=== PATIENT | female | born 1945 | race Caucasian/White ===

== ENCOUNTER → 2023-08-16 13:23 | Outpatient (REF) | payer MEDICARE, OTHER, SELFPAY | LOC: WDC 13:23 | PROVIDERS: ATTENDING PHYSICIAN Obstetrics & Gynecology Gynecology; FAMILY PHYSICIAN Physician Assistant Medical | DX: Z12.31 Encounter for screening mammogram for malignant neoplasm of breast (principal) | CPT/HCPCS: 77063; 77067 ==

== ENCOUNTER → 2023-09-20 09:42 | Outpatient (REF) | payer MEDICARE, OTHER, SELFPAY | LOC: WDC 09:42 | PROVIDERS: ATTENDING PHYSICIAN Obstetrics & Gynecology Gynecology; FAMILY PHYSICIAN Physician Assistant Medical | DX: R92.2 Inconclusive mammogram (principal) | CPT/HCPCS: 76641 ==

== ENCOUNTER → 2023-09-29 15:23 | Outpatient (REF) | payer MEDICARE, OTHER, SELFPAY ==
[2023-09-29 16:53] LABS: % Basophils 0.5 % (0-2); % Immature Granulocytes 0.3 % (0-0.5); % Lymphocytes 24.3 % (20.5-51.1); % Monocytes 6.4 % (1.7-9.3); % Neutrophils 68.5 % (42.2-75.2); Absolute Lymphocytes 1.4 10^3/uL (1.2-3.4); Absolute Monocytes 0.4 10^3/uL (0.1-0.6); Absolute Neutrophils 3.9 10^3/uL (1.4-6.5); Hematocrit 36.5 % (37.0-47.0); Hemoglobin 12.2 g/dL (12.0-16.0); Mean Corp Hgb Conc. 33.4 g/dL (33.0-37.0); Mean Corpuscular Hgb 29.5 pg (27.0-31.0); Mean Corpuscular Volume 88.4 fL (81.0-99.0); Mean Platelet Volume 9.8 fL (7.4-10.4); Nucleated Red Blood Cells % 0 %; Platelet Count 235 10^3/uL (130-400); Red Blood Cell Count 4.13 10^6/uL (4.20-5.40); Red Cell Dist. Width 13.6 % (11.5-14.5); White Blood Cell Count 5.8 10^3/uL (4.8-10.8)
[2023-09-29 17:09] LABS: ALT (SGPT) 18 U/L (0-35); AST (SGOT) 30 U/L (14-36); Albumin 4.5 g/dl (3.5-5.0); Alkaline Phosphatase 67 U/L (38-126); Blood Urea Nitrogen 20 mg/dl (7-17); Calcium 9.5 mg/dl (8.4-10.2); Carbon Dioxide 27 mmol/L (22-30); Chloride 105 mmol/L (98-107); Glucose 98 mg/dl (70-99); HDL Cholesterol 74 mg/dl; LDL Cholesterol, Calculated 131 mg/dl; Potassium 4.2 mmol/L (3.5-5.1); Sodium 140 mmol/L (135-145); Total Cholesterol 218 mg/dl (50-199); Total Protein 7.1 g/dl (6.3-8.2); Triglyceride 68 mg/dl (10-149); Very Low Density Lipoprotein 13 mg/dl (0-30); eGFR > 60.00
[2023-09-29 17:37] LABS: TSH Reflex To Free T4 1.04 uIU/ml (0.47-4.68)
== END ==
LOC: REG 15:23
PROVIDERS: ATTENDING PHYSICIAN Internal Medicine
DX: E78.2 Mixed hyperlipidemia (principal); I10 Essential (primary) hypertension
CPT/HCPCS: 36415; 80053; 80061; 84443; 85025

== ENCOUNTER 2024-04-07 16:22 | Emergency (ER) | payer MEDICARE, OTHER, SELFPAY ==
[2024-04-07 16:38] VITALS: BP 185/93
[2024-04-07 17:11] LABS: % Basophils 0.4 % (0-2); % Immature Granulocytes 0.3 % (0-0.5); % Lymphocytes 14.7 % (20.5-51.1); % Monocytes 7.1 % (1.7-9.3); % Neutrophils 77.5 % (42.2-75.2); Absolute Monocytes 0.5 10^3/uL (0.1-0.6); Absolute Neutrophils 5.2 10^3/uL (1.4-6.5); Hematocrit 35.7 % (37.0-47.0); Hemoglobin 11.9 g/dL (12.0-16.0); Mean Corp Hgb Conc. 33.3 g/dL (33.0-37.0); Mean Corpuscular Hgb 29.5 pg (27.0-31.0); Mean Corpuscular Volume 88.6 fL (81.0-99.0); Mean Platelet Volume 9.5 fL (7.4-10.4); Nucleated Red Blood Cells % 0 %; Platelet Count 250 10^3/uL (130-400); Red Blood Cell Count 4.03 10^6/uL (4.20-5.40); White Blood Cell Count 6.7 10^3/uL (4.8-10.8)
[2024-04-07 17:18] LABS: ALT (SGPT) 35 U/L (0-35); AST (SGOT) 51 U/L (14-36); Albumin 4.5 g/dl (3.5-5.0); Alkaline Phosphatase 58 U/L (38-126); Blood Urea Nitrogen 26 mg/dl (7-17); Calcium 9.4 mg/dl (8.4-10.2); Carbon Dioxide 31 mmol/L (22-30); Chloride 105 mmol/L (98-107); Glucose 115 mg/dl (70-99); Potassium 3.8 mmol/L (3.5-5.1); Sodium 142 mmol/L (135-145); Total Bilirubin 1.2 mg/dl (0.2-1.3); eGFR > 60.00
[2024-04-07 21:07] VITALS: BP 192/82
[2024-04-07 21:10] VITALS: BMI 25.5
[2024-04-07 21:12] VITALS: BP 195/92
[2024-04-07 21:30] LABS: Urine Albumin Negative (Neg - Trace); Urine Bilirubin Negative (Negative); Urine Character Clear (Clear); Urine Color Yellow; Urine Glucose Negative (Negative); Urine Ketone Negative (Negative); Urine Leukocyte Negative (Negative); Urine Nitrite Negative (Negative); Urine Occult Blood Negative (Negative); Urine Urobilinogen Negative (Neg - 1+)
[2024-04-07 23:00] VITALS: BP 176/83
--- NOTE | 2024-04-07 23:35 | ED.GENMED ---
History of Present Illness
General
Chief Complaint: Change in Mental Status
Time Seen by Provider: 04/07/24 22:43
History of Present Illness
History of Present Illness:
78-year-old female with history of anxiety presenting to the emergency department for concern of depression and psychosis type symptoms. Patient arrives with brother who reports for the past several months patient has been struggling, and appears
to have worsened in the past 2 months. Patient herself expresses delusional behavior, hallucinations. She continues to perseverate on feeling like her house is not her home. Brother report last night around midnight, she called him and left a
voicemail with tangential speech. Patient denies any SI or HI. She is aware of her current feelings. She denies any associated medical complaint such as chest pain, difficulty breathing, abdominal pain, weakness, numbness or tingling to her her
extremities. Denies recent fever or illness, or additional acute medical complaints
Phy Exam
Physical Exam
Physical Exam:
General: Well-appearing, no clinical signs of dehydration, nontoxic and in no acute distress
HEENT: protecting airway
Neck: appears supple
CV: Normal heart rate, regular rhythm
Resp: No accessory muscle use, no increased work of breathing, lungs clear to auscultation bilaterally
Abd: No distention
Extremities: No deformities, no swelling
Neuro: alert, no focal neurologic deficit
: deferred
Rectal: deferred
Psych: Normal affect
Skin: Intact
Course
Orders/Labs/Results
Orders:
Orders
04/07/24 16:57
Complete Blood Count/With Diff Urgent
Comprehensive Metabolic Panel Urgent
04/07/24 18:49
CT Head W/o Iv Contrast Urgent
Comment:
Reason For Exam: AMS
04/07/24 21:10
Urinalysis Reflex To Culture Urgent
Date Specimen was Collected: 04/07/24
Time Specimen was Collected: 16:43
04/07/24 22:40
Crisis Consult Urgent
Reason for Consult: depression, anxiety
Abnormal Lab Results
04/07/24
16:57
RBC 4.03 L 10^6/uL
(4.20-5.40)
Hgb 11.9 L g/dL
(12.0-16.0)
Hct 35.7 L %
(37.0-47.0)
Absolute Lymphs (auto) 1.0 L 10^3/uL
(1.2-3.4)
Neutrophils % 77.5 H %
(42.2-75.2)
Lymphocytes % 14.7 L %
(20.5-51.1)
Carbon Dioxide 31 H mmol/L
(22-30)
BUN 26 H mg/dl
(7-17)
Glucose 115 H mg/dl
(70-99)
AST 51 H U/L
(14-36)
04/07/24 16:57
04/07/24 16:57
Vital Signs
Initial and Last Documented VS:
Initial Vital Signs
Temp Pulse Resp BP Pulse Ox
97.6 F 93 18 185/93 99
04/07/24 16:38 04/07/24 16:38 04/07/24 16:38 04/07/24 16:38 04/07/24 16:38
Last Documented Vital Signs
Temp Pulse Resp BP Pulse Ox
97.6 F 74 20 99/86 98
04/07/24 16:38 04/08/24 00:00 04/08/24 00:00 04/08/24 00:00 04/08/24 00:00
MDM/Problems Addressed
MDM/Problems Addressed:
78-year-old female with history of anxiety presenting for concern of depression and acute psychosis. Vital signs on arrival are significant for high blood pressure.
On exam, patient is resting comfortably, no acute distress or discomfort. Denies any present acute medical complaints. She is awake, alert, oriented, did not appear to be acutely confused with no focal neurologic deficits. Patient had screening
laboratory analysis and CT brain imaging prior to my assessment, normal urinalysis, laboratory work, CT brain. Patient is very hypertensive on arrival, noted underlying history of high blood pressure, however does not take medications because she
does not like taking medications. Do not suspect that hypertension is contributing to symptoms. Suspect underlying severe depression. Patient denies any present SI or HI, does not appear to be present threat to herself or others. Will have
patient evaluated by crisis
23:50 -patient seen by crisis, feel that patient's symptoms are rooted in severe anxiety, sparked by increasing memory loss that has been ongoing for several years. In agreement with assessment. Patient has very strong support, recommending
outpatient psychiatry and therapy follow-up. Regarding her blood pressure, do feel patient warrants medical therapy. Advised close outpatient PCP follow-up for blood pressure recheck and medication management. Otherwise stable for discharge.
Return precautions discussed and patient verbalized understanding
*Critical Care Note
Total Time (30-74mins, 75-104mins- exclusive of procedures): Not Applicable
ED Attending Note
-
Portions of this chart may have been created with voice recognition software.� Occasional wrong word or��sound alike� substitutions may have occurred due to the inherent limitations of voice recognition software.
Discharge Plan
Departure
Patient Disposition: Home (Routine Discharge)
Date of Disposition: 04/08/24
Time of Disposition: 00:25
Patient with high blood pressure during this ER visit?: Yes
Condition: Good
Discharge Problem:
Anxiety, High blood pressure
Instructions: Generalized anxiety disorder, How to Help Your Memory, Hypertention
Referrals:
UNKNOWN - PT DOES,NOT KNOW [Family Provider] -
Activity Restrictions/Additional Instructions:
You were seen in the emergency department for anxiety
You were found to have normal laboratory work and CT imaging of your brain. You were seen by crisis management, and were provided resources for outpatient therapy and psychiatry.
Please follow-up closely with your primary care physician for suspected underlying diagnosis of high blood pressure
Return to the emergency department for any worsening of your symptoms including increased anxiety/panic or thoughts of wanting to hurt yourself or others, or any development of chest pain, difficulty breathing, abdominal pain with persistent
vomiting and inability to tolerate food or liquid by mouth (concern for dehydration), weakness, headache or confusion, fever greater than 100.4, or any additional symptoms that are concerning to you.
Thank you for choosing [facility].
Interventions
Interventions:
*Risk Screen - Suicide Last Done: 04/07/24 16:23
*General Assessment Last Done: 04/07/24 21:11
*Neglect/Abuse Screening Last Done: 04/07/24 21:11
ED- Fall Risk Assessment Last Done: 04/07/24 21:11
*ED COVID-19 Vaccine History Last Done: 04/07/24 21:11
*Nursing Disposition Last Done: 04/08/24 00:32
ED- Cardiac Assessment Last Done: 04/07/24 21:18
ED- Neurological Assessment Last Done: 04/07/24 21:12
Discharge Date and Time
Discharge Date/Time: 04/08/24 00:30
Print Language: THAI
[2024-04-08] VITALS: BP 99/86
== END 2024-04-08 00:30 | disposition home or self-care (01) ==
LOC: EMR 16:22
PROVIDERS: Emergency Medicine; EMERGENCY PHYSICIAN Student in an Organized Health Care Education/Training Program
DX: F41.9 Anxiety disorder, unspecified (principal); I10 Essential (primary) hypertension; F32.A Depression, unspecified
CPT/HCPCS: 99284; 70450; 80053; 81003; 85025

== ENCOUNTER 2024-04-14 01:59 | Observation (INO) | payer MEDICARE, OTHER, SELFPAY ==
[2024-04-13] VITALS (7 sets, daily range): BP systolic 147–192; BP diastolic 63–99; BMI 25.3
[2024-04-13 15:02] LABS: % Basophils 0.4 % (0-2); % Immature Granulocytes 0.2 % (0-0.5); % Lymphocytes 13.8 % (20.5-51.1); % Monocytes 7.5 % (1.7-9.3); % Neutrophils 78.1 % (42.2-75.2); Absolute Lymphocytes 0.8 10^3/uL (1.2-3.4); Absolute Monocytes 0.4 10^3/uL (0.1-0.6); Absolute Neutrophils 4.5 10^3/uL (1.4-6.5); Hematocrit 35.3 % (37.0-47.0); Mean Corpuscular Hgb 29.9 pg (27.0-31.0); Mean Corpuscular Volume 87.8 fL (81.0-99.0); Mean Platelet Volume 9.8 fL (7.4-10.4); Nucleated Red Blood Cells % 0 %; Platelet Count 240 10^3/uL (130-400); Red Blood Cell Count 4.02 10^6/uL (4.20-5.40); Red Cell Dist. Width 13.8 % (11.5-14.5); White Blood Cell Count 5.7 10^3/uL (4.8-10.8)
[2024-04-13 15:23] LABS: ALT (SGPT) 33 U/L (0-35); AST (SGOT) 39 U/L (14-36); Albumin 4.4 g/dl (3.5-5.0); Alkaline Phosphatase 68 U/L (38-126); Blood Urea Nitrogen 26 mg/dl (7-17); Calcium 9.3 mg/dl (8.4-10.2); Carbon Dioxide 31 mmol/L (22-30); Chloride 103 mmol/L (98-107); Glucose 116 mg/dl (70-99); Sodium 140 mmol/L (135-145); Total Bilirubin 0.8 mg/dl (0.2-1.3); Total Protein 6.9 g/dl (6.3-8.2); eGFR > 60.00
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
[2024-04-13] MEDS: NSS 1000 IV (19:17)
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
[2024-04-13 22:16] LABS: Urine Albumin Negative (Neg - Trace); Urine Bilirubin Negative (Negative); Urine Character Clear (Clear); Urine Color Yellow; Urine Glucose Negative (Negative); Urine Ketone Negative (Negative); Urine Leukocyte Trace (Negative); Urine Nitrite Negative (Negative); Urine Occult Blood Negative (Negative); Urine Urobilinogen 1+ (Neg - 1+)
[2024-04-13 22:23] LABS: Urine Bacteria Few (Negative); Urine Red Blood Cell 0-2 /HPF (0-2)
--- NOTE | 2024-04-13 22:45 | W.PN.UPDATE ---
Update Note
Progress Note Update
Patient seen in conjunction with LEONOR. I agree with the findings on history and physical. I concur with the assessment and plan unless stated otherwise.
This is a 78-year-old female with no known signal past medical history. She does endorse history of hypertension for which she has stopped taking any medications. She presents to the emergency department for recurrent episodes of hallucination.
She states this has been going on for several weeks. She reports visual hallucinations involving people. She denies any auditory hallucinations. She denies any prior history of hallucinations delusions or psychiatric disorders. She denies
current depression but reports that she has been stressed by the hallucinations. She denies any sleeping disorders. She denies urinary symptoms. She denies any weakness since, numbness tingling, facial asymmetry.
Brought into the emergency department as she was having increasing confusion per family members.
In the emergency department she was hypertensive with a blood pressure of 180/70 and pulse of 79. She was afebrile. Oxygen saturation was normal on room air. CBC was complete within normal limits. Electrolytes were also completely within normal
limits.
CT of the head shows no acute findings.
A&P
Hallucinations w/o overt psychosis. Suspect in setting of some memory loss and confusion this is due to dementia.
- admit to med/surg
- subacute ementia w/u with u/a, b12, tsh and rpr
- psych consultation
- pt eval
- case management
HTN
- SBP 185, check orthostatic in am, start norvasc 2.5 if not orthostatic
DVT PPX - lovenox sq
Code status - full code
[2024-04-14] VITALS (9 sets, daily range): BP systolic 99–168; BP diastolic 50–104
[2024-04-14 05:50] LABS: Hematocrit 29.8 % (37.0-47.0); Hemoglobin 9.9 g/dL (12.0-16.0); Mean Corp Hgb Conc. 33.2 g/dL (33.0-37.0); Mean Corpuscular Hgb 30.4 pg (27.0-31.0); Mean Corpuscular Volume 91.4 fL (81.0-99.0); Mean Platelet Volume 10.2 fL (7.4-10.4); Platelet Count 190 10^3/uL (130-400); Red Blood Cell Count 3.26 10^6/uL (4.20-5.40); Red Cell Dist. Width 13.7 % (11.5-14.5); White Blood Cell Count 4.5 10^3/uL (4.8-10.8)
[2024-04-14 06:22] LABS: TSH 0.91 uIU/ml (0.47-4.68)
[2024-04-14 06:41] LABS: Vitamin B12 203 pg/ml (239-931)
[2024-04-14 06:43] LABS: Blood Urea Nitrogen 20 mg/dl (7-17); Calcium 8.5 mg/dl (8.4-10.2); Carbon Dioxide 26 mmol/L (22-30); Chloride 108 mmol/L (98-107); Estimated Creatinine Clearance 65 ml/min; Glucose 101 mg/dl (70-99); Potassium 3.7 mmol/L (3.5-5.1); Sodium 137 mmol/L (135-145); eGFR > 60.00
[2024-04-14 11:18] LABS: Syphilis/T. pallidum Ab Reflex Negative (Negative)
--- NOTE | 2024-04-14 12:11 | CON.MD ---
Addendum entered and electronically signed by Delta Melvin MD 04/14/24 13:10:
patient should also see ophthalmology for followup re macular degeneration. 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
Original Note:
Consultation - Medical
-
patient seen chart reviewed. the patient is an 78 year old woman . her brother and sister in law were present at bedside. the patient has come to er twice in the past week. she started to experience visual hallucinations about a month ago. she
sees people staring at her. they do not speak but in the wake on a few of these occasions she became very paranoid and thought they had stolen money from her. her sister in law whom she called was able to reassure her that this was not the case.
this patient does NOT present the typical px of an early dementia who is developing paranoia. she is very intelligent articulate and presents very well. she has no psych hx. she was reflective when i asked about psych hx and said she believes to
some extent she may have been depressed and anxious at times but was in a state of denial and reassured herself she was strong enough to deal with whatever came her way and until now she has. she does feel somewhat depressed at this time in that
her energy level is down but she can still enjoy some activities . she wants to sleep more. her appetite is good. she does not have suicidal thoughts. her family brings up that once she called them in the middle of the night when she suddenly
awakened very upset that she knew she was in her house but then felt it was not her house but rather a replica of her house. they were able to reassure her.
past psych hx patient has never been hospitalized or treated psychiatrically
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
family hx brother w hx serious depression has tried many meds and also including tms and ketamine. father may have suicided. patient had a brother who was seriously ill psychiatrically but at 14 from cancer
medical hx patient takes no medications currently. she does have hx hld and htn as well as tinnitus. she is anemic hgb9.9 normocytic bun sl high cat scan w some atrophy white matter ischemic disease bp 99/55 b12 is low tsh nl patient
believes she was told in the past that she has 'some macular degeneration' about a year ago. did not followup . she does not have a pcp.
social hx resides alone. 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 enjoys making
jewelry. had a chaotic childhood both parents etohic and brother raised hell. he very young
mse alert ox3 cooperative and very pleasant/articulate. speech and thought process normal. mood is i would say neutral although some anxiety about the hallucinations apparent. affect normal. no si above aver intelligence insight judgment good
dx visual hallucinations etiology unclear r/o incipient dementia r/o neurological issue
recommendations patient is clearly unnerved by visual hallucinations which can be related to sleep onset/offset which of course would be normal but do not occur solely at that time. there are many causes of visual hallucinations including
neurological issues (eg small strokes, seizure auras etc.) secondary to visual impairments, incipient dementia. This patient is NOT grossly cognitively impaired. she does not appear to me to be psychotic at present. moments of paranoia which it
seems are easily defused by family reassurance may be from the fright engendered by seeing things. she does have appt with a neuro psych dr maggie eugene on the May. i would suggest neuro consult . would defer to neuro re mri which family
is requesting. check folate. noted b12 is low and should be repleted. she is also anemic which should be addressesd as a hgb of 9.9 could be something. she also has relatively low wbc w low lymphocytes. i would be reluctant to rx with
antipsychotics which do not do much for visual hallucinations and could cause significant side effects. would reassess after medical and neuro workup. do not feel she needs psych meds at this juncture. have notified dr johansen (neuro) re consult.
--- NOTE | 2024-04-14 12:22 | CM ---
CM reviewed medical records. CM discussed case with CM director. CM will await psychiatry's recommendation.
--- NOTE | 2024-04-14 13:21 | CON.NEURO ---
Neuro Assessment/Plan
Assessment
head CT: mild microvascular changes
Visual hallucinations due to Parkinson's disease
her parkinsonism is relatively mild
Plan
start Seroquel 12.5 mg daily
no need for MRI
ok to go home
outpatient neurology follow up, consider Nuplazid 34 mg daily
Consultation
Order
Date of Consultation: 04/14/24
Requesting Provider: Leisa Melvin
Reason for Consult: Visual hallucinations
Subjective/Objective
Subjective Data
Date of Service: April 14, 2024
78 year old woman presents with 1 month of visual hallucinations. she sees a woman sitting on her bed holding a purse staring at her through the handles. the hallucination does not speak, and she finds it scary. Occasional paranoid delusions that
someone stole money from her.
She denies punching/kicking during sleep. +fine tremors, walking slower, softer voice in recent years
Objective Data
Vital Signs
Temp Pulse Resp BP Pulse Ox
36.9 C 70 16 168/75 98
04/14/24 11:55 04/14/24 09:00 04/14/24 09:00 04/14/24 09:00 04/14/24 04:00
Lab Results
04/14/24 04:53
04/14/24 04:53
Sodium 137 mmol/L (135-145) 04/14/24 04:53
Potassium 3.7 mmol/L (3.5-5.1) 04/14/24 04:53
BUN 20 mg/dl (7-17) H 04/14/24 04:53
Glucose 101 mg/dl (70-99) H 04/14/24 04:53
Calcium 8.5 mg/dl (8.4-10.2) 04/14/24 04:53
Vitamin B12 203 pg/ml (239-931) L 04/14/24 04:53
Patient Allergies
No Allergy Information Available Allergy (Unverified 04/07/24 16:40)
Physical Exam
-
AAO x3, speech soft, clear, language intact
VFF, EOMI, face symmetric
full strength b/l UE/LE,
+bradycardia, +cogwheel rigidity with contralateral activation
sensation intact to touch/pin
DTR 1+ symmetrical
Medications
-
Active Medications
Generic Name Dose Route Start Last Admin
Trade Name Freq PRN Reason Stop Dose Admin
Enoxaparin Sodium 40 mg 04/14/24 18:00
Enoxaparin Sodium 40 Mg/0.4 Ml Syringe SC 05/12/24 17:59
QPM MUNDO
Sodium Chloride 0 flush 04/13/24 22:00
Sodium Chloride 0.9% (Flush) Syringe IV 05/11/24 21:59
PER PROTOCOL MUNDO
Home Medications
�Medication �Instructions �Recorded
No Meds [No Current Medications] 04/13/24
[2024-04-14] MEDS: CYANOCOBALAMIN 1000 MCG IM (14:28)
--- NOTE | 2024-04-14 14:54 | W.PN.HOSP.TC ---
Today's Communication/Plan
-
Discharge home today
Assessment / Plan
Assessment / Plan
Impression:
his is a 78-year-old female with no known past psych history who presents to the emergency department for recurrent episodes of hallucination. She states this has been going on for several weeks. She reports visual hallucinations involving people.
She denies any auditory hallucinations. She denies any prior history of hallucinations delusions or psychiatric disorders. Vitamin B12 came back low, was given vitamin B 12 shot and will be discharged on oral supplement.
Seen by both psych and neurology, no further imaging needed.
Recommendation from neurology to start Seroquel 12.5 mg at night
Assessment/plan
hallucinations
Head CT: No acute intracranial abnormality noted.
No acute intracranial hemorrhage.
No evidence of acute large vascular territory transcortical infarct at this time.
- Admit patient to med/surg for observation
- Psych Consult
- Dementia workup
- Case management
- PT Eval
04/14
Vitamin B12 came back low, was given vitamin B 12 shot and will be discharged on oral supplement.
Seen by both psych and neurology, no further imaging needed.
Recommendation from neurology to start Seroquel 12.5 mg at night
#anxiety
#hyperlipidemia
#hypertension
#tinnitus
Code Status: Full Code
DVT Prophylaxis: Lovenox Sq
Anticipated Discharge: Today
Subjective/Interval History
-
Date of Service: April 14, 2024
Patient seen and examined at bedside, then evaluated by both neurology and psychiatrist.
Plan to discharge home today.
Objective Data
-
Labs:
Laboratory Results
04/14/24
04:53
WBC 4.5 L
Hgb 9.9 L
Hct 29.8 L
Plt Count 190 D
Sodium 137
Potassium 3.7
Chloride 108 H
Carbon Dioxide 26
BUN 20 H
Creatinine 0.6
Glucose 101 H
Calcium 8.5
Vital Signs:
Vital Signs
Temp Pulse Resp BP Pulse Ox
98.2 F 92 16 147/104 97
04/14/24 14:41 04/14/24 14:41 04/14/24 14:41 04/14/24 14:41 04/14/24 14:41
I&O
04/13/24 04/14/24 04/15/24
06:59 06:59 06:59
Intake Total 1060 / 1060
Balance 1060 / 1060
Physical Exam
-
General: Well Developed, Well Nourished, No Apparent Distress and Comfortable
HEENT: Normocephalic, Atraumatic, Moist Mucous Membranes, No Ptosis, PERRLA and Nose Appears Normal
Respiratory: Clear to Auscultation and Non Labored Respirations
Cardiac: Regular Rhythm and S1/S2
Breast: Deferred by me
GI: Soft, Nontender, Nondistended and Normal Bowel Sounds
Genito-urinary: No Costovertebral Tender
Musculoskeletal: No Clubbing, No Cyanosis and No Edema
Skin: Warm
Neuro: Awake, Alert, Oriented, AO x 3 and No Motor Deficits
Psych: Confused and Anxious
--- NOTE | 2024-04-14 15:04 | W.DCSUMMARY ---
Discharge Summary
Discharge Data
Date of Admission: 04/14/24
Date of Discharge: 04/14/24
-
Pending Results: No
Hospital Course
Impression:
his is a 78-year-old female with no known past psych history who presents to the emergency department for recurrent episodes of hallucination. She states this has been going on for several weeks. She reports visual hallucinations involving people.
She denies any auditory hallucinations. She denies any prior history of hallucinations delusions or psychiatric disorders. Vitamin B12 came back low, was given vitamin B 12 shot and will be discharged on oral supplement.
Seen by both psych and neurology, no further imaging needed.
Recommendation from neurology to start Seroquel 12.5 mg at night
Assessment/plan
hallucinations
Head CT: No acute intracranial abnormality noted.
No acute intracranial hemorrhage.
No evidence of acute large vascular territory transcortical infarct at this time.
- Admit patient to med/surg for observation
- Psych Consult
- Dementia workup
- Case management
- PT Eval
04/14
Vitamin B12 came back low, was given vitamin B 12 shot and will be discharged on oral supplement.
Seen by both psych and neurology, no further imaging needed.
Recommendation from neurology to start Seroquel 12.5 mg at night
#anxiety
#hyperlipidemia
#hypertension
#tinnitus
Code Status: Full Code
DVT Prophylaxis: Lovenox Sq
Anticipated Discharge: Today
Discharge Plan
-
Patient Disposition: Home (Routine Discharge)
Discharge Diagnosis/Procedures: Hallucinations
Diet: No restrictions
Activity: No restrictions
Driving Restrictions: As prior to admission
Referrals:
[facility] PS[facility] [Specified Professional Personl] - in two to three weeks
NONE,* [Family Provider] -
Prescriptions:
New
quetiapine 25 mg Tablet
12.5 mg PO HS Qty: 30 0RF
cyanocobalamin (vitamin B-12) [Vitamin B-12] 1,000 mcg tablet
1,000 mcg PO DAILY Qty: 30 0RF
Discharge Orders:
Discharge Patient (As Directed); Ordered 04/14/24
Ordered By: Cynthia Mcguire
Discharge Date and Time
Print Language: GAMBIAN
== END 2024-04-14 15:18 | disposition home or self-care (01) ==
LOC: ED 01:59
PROVIDERS: Clinical Nurse Specialist Family Health; Emergency Medicine; Nurse Practitioner Family; ADMITTING PHYSICIAN Internal Medicine; ATTENDING PHYSICIAN General Practice; CONSULT PHYSICIAN Psychiatry & Neurology Clinical Neurophysiology; CONSULT PHYSICIAN Psychiatry & Neurology Psychiatry; EMERGENCY PHYSICIAN Student in an Organized Health Care Education/Training Program
DX: R44.1 Visual hallucinations (principal); R51.9 Headache, unspecified; R42 Dizziness and giddiness; F32.A Depression, unspecified; G20.A1 Parkinson's disease without dyskinesia, without mention of fluctuations; E78.00 Pure hypercholesterolemia, unspecified; M54.50 Low back pain, unspecified; E86.0 Dehydration; F41.9 Anxiety disorder, unspecified; I10 Essential (primary) hypertension; H93.19 Tinnitus, unspecified ear; F10.11 Alcohol abuse, in remission; Z81.8 Family history of other mental and behavioral disorders; Z60.2 Problems related to living alone; Z81.1 Family history of alcohol abuse and dependence; Z87.891 Personal history of nicotine dependence
CPT/HCPCS: 70450; 80048; 80053; 81003; 81015; 82607; 84443; 85025; 85027; 86780; 96360; 96361; 99285; G0378